=== PATIENT | male | born 1995 | race Caucasian/White ===

== ENCOUNTER 2016-08-11 03:02 | Emergency (ER) | payer OTHER ==
[2016-08-11] MEDS ORDERED: ONDANSETRON 4 MG/2 ML VIAL ONE (03:26)
[2016-08-11] MEDS ORDERED: ACETAMINOPHEN 500 MG TAB ONE (03:29)
[2016-08-11] MEDS ORDERED: NS 1,000 ML IV ONE (03:33)
[2016-08-11] MEDS ORDERED: ACETAMINOPHEN 500 MG TAB PO ONE (03:33)
[2016-08-11] MEDS ORDERED: ONDANSETRON 4 MG/2 ML VIAL IVP ONE (03:33)
--- NOTE | 2016-08-11 03:45 | EDPHY ---
H & P Time Seen by Provider: 08/11/16 03:22 HPI/ROS: HPI Flu symptoms. 21-year-old male by private vehicle. He reports onset of fever, nonproductive cough, sore throat, mild dull gradual onset headache, chills, muscle aches and joint aches starting mid afternoon yesterday. He reports he was seen at an urgent care for [place] at 8:00 p.m.. No chest x-ray performed. No influenza done. Patient sent home on supportive care. He returns to the emergency department this morning stating that his symptoms are worse. ROS: Constitutional: As above. No weakness. Eyes: No discharge. No changes in vision. ENT: As above. Respiratory: As above. No shortness of breath. Cardiac: No chest pain, no palpitations. Gastrointestinal: No abdominal pain, no vomiting, no diarrhea. Genitourinary: No hematuria. No dysuria or increased frequency with urination. Musculoskeletal: As above. Skin: No rashes. Neurological: No headache. No focal weakness or altered sensation. Past medical history: Social history: Physical Exam: General Appearance: Alert, no distress. This patient is responding to questions appropriately and in full sentences. This patient appears well- hydrated and well-nourished. Eyes: Pupils equal and round no pallor or injection. No lid edema, erythema or injection. ENT, Mouth: Mucous membranes are moist. The pharyngeal tissues are unremarkable. No edema or swelling. No asymmetry suggestive of abscess. No erythema or exudates. Respiratory: There are no retractions, lungs are clear to auscultation with good air movement bilaterally. No tachypnea. Cardiovascular: Regular rate and rhythm. No murmur. Gastrointestinal: Abdomen is soft and nontender, no masses, bowel sounds normal. No focal tenderness at McBurney's point. No Centeno sign. Neurological: Motor sensory function is grossly intact. Cranial nerves are normal. Gait is normal. Skin: Warm and dry, no rashes. Musculoskeletal: Neck is supple and nontender. No cervical lymphadenopathy Extremities are symmetrical. All joints range without pain or impingement. Psychiatric: No agitation. No depression. Database: EKG: Imaging: Chest x-ray PA and lateral; the cardiac mediastinal silhouette is unremarkable. No evidence of infiltrate or pneumothorax. Bronchitis. No other acute cardiopulmonary disease process noted. Interpreted by me. Procedures: Emergency department course: Patient sent for a chest x-ray. Results of chest x-ray discussed with him. Onset of symptoms less than 48 hours. No evidence of pneumonia on chest x-ray. His symptomatology is classic for influenza. Patient started on Tamiflu 75 mg orally in the emergency department. He was also given Tylenol for fever. He feels comfortable going home and I feel he is safe for discharge. I discussed high-dose ibuprofen. He will be prescribed Tamiflu on discharge. Follow-up and return to emergency department precautions discussed with him. All of his questions were answered. He was discharged in good condition. Differential Diagnosis: The differential diagnosis on this patient includes but is not limited to influenza, viral bronchitis. Pneumonia, serious bacterial infection unlikely. This represents a partial list of diagnoses considered. These considerations are based on history, physical exam, past history, reassessment and diagnostic testing. Smoking Status: Never smoked Constitutional: Initial Vital Signs Temperature (C) 38.5 C H 08/11/16 03:04 Heart Rate 98 08/11/16 03:04 Respiratory Rate 18 08/11/16 03:04 Blood Pressure 147/84 H 08/11/16 03:04 O2 Sat (%) 93 08/11/16 03:04 O2 Delivery Mode Room Air Allergies/Adverse Reactions: No Known Allergies Allergy (Verified 08/11/16 03:07) Home Medications: Medication Instructions Recorded Albuterol 08/11/16 Oseltamivir Phosphate [Tamiflu 75 75 mg PO BID #10 cap 08/11/16 mg (RX)] Medical Decision Making - Data Points Medications Given: Discontinued Medications Acetaminophen (Tylenol) 1,000 mg PO EDNOW ONE Stop: 08/11/16 03:34 Last Admin: 08/11/16 03:30 Dose: 1,000 mg Sodium Chloride (Ns) 1,000 mls @ 0 mls/hr IV ONCE ONE PRN Reason: Wide Open Stop: 08/11/16 03:34 Last Admin: 08/11/16 03:30 Dose: 1,000 mls Ondansetron HCl (Zofran) 4 mg IVP EDNOW ONE Stop: 08/11/16 03:34 Last Admin: 08/11/16 03:30 Dose: 4 mg Departure - Departure Disposition: Home, Routine, Self-Care Clinical Impression: Influenza Condition: Good Instructions: Influenza (ED) Additional Instructions: Read and follow provided instructions. Follow-up with your primary care physician tomorrow for re-evaluation. Take medication as prescribed. Ibuprofen dosin mg every 6 hours with meals for the next 3 days only. Return to the emergency department for worsening symptoms or other serious concerns. Prescriptions: Oseltamivir Phosphate [Tamiflu 75 mg (RX)] 75 mg PO BID #10 cap
[2016-08-11] MEDS ORDERED: OSELTAMIVIR PHOSPHATE 75 MG CAP PO ONE (04:05)
[2016-08-11] MEDS ORDERED: OSELTAMIVIR PHOSPHATE 75 MG CAP ONE (04:06)
[2016-08-11 04:19] VITALS: BP 124/70; PULSE 83; RESP 16; TEMP 99.1; O2SAT 92
== END 2016-08-11 04:18 | disposition home or self-care (01) ==
DX: J11.1 Influenza due to unidentified influenza virus with other respiratory manifestations (principal)
CPT/HCPCS: 96374; J2405

== ENCOUNTER 2016-08-12 12:30 | Emergency (ER) | payer OTHER ==
[2016-08-12] MEDS ORDERED: IPRATROPIUM/ALBUTEROL 3 ML DEYVIAL IH ONE (12:45)
--- NOTE | 2016-08-12 12:52 | EDPHY ---
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 He has been taking ibuprofen for pain relief and has started taking his Tamiflu. Denies back or flank pain. Denies nuchal rigidity. Denies gait instability. Denies slurred speech. Denies abdominal pain. Denies urinary complaints. Denies rash or international travel. PRIMARY CARE PROVIDER: [facility] REVIEW OF SYSTEMS: A ten point review of systems was performed and is negative with the exception of the items mentioned in the HPI PAST MEDICAL & SURGICAL HISTORY: No pertinent medical or surgical history SOCIAL HISTORY: Nonsmoker, student PHYSICAL EXAM (Prior to examination, patient consented to physical exam, hands were washed and my usual and customary physical exam procedures followed) 1) GENERAL: Well-developed, well-nourished, alert and oriented. Appears nontoxic 2) HEAD: Normocephalic, atraumatic 3) HEENT: Pupils equal, round, reactive to light bilaterally. Sclera anicteric. Nasopharynx, oropharynx, clear, no lesions. Posterior oropharynx is erythematous with no exudate, no trismus no drooling. Ears bilaterally with normal tympanic membranes. 4) NECK: Full range of motion, no meningeal signs. No adenopathy 5) LUNGS: Clear auscultation bilaterally, no wheezes, no rhonchi, no retractions. 6) HEART: Regular rate and rhythm, no murmur, no heave, no gallop. 7) ABDOMEN: No guarding, no rebound, no focal tenderness, negative McBurney's, negative Centeno's, negative Rovsing's, negative peritoneal sign, 8) MUSCULOSKELETAL: Moving all extremities, no focal areas of tenderness, no obvious trauma. No peripheral edema or discoloration. 9) BACK: No CVA tenderness. 10) SKIN: No rash, no petechiae. DIFFERENTIAL DIAGNOSIS: In no particular include but limited to pneumonia, pneumothorax, hemothorax - Personal History Current Tetanus/Diphtheria Vaccine: Yes Tetanus Vaccine Date: 2012 - Medical/Surgical History Hx Asthma: Yes Hx Chronic Respiratory Disease: No Hx Diabetes: No Hx Cardiac Disease: No Hx Renal Disease: No Hx Cirrhosis: No Hx Alcoholism: No Hx HIV/AIDS: No Hx Splenectomy or Spleen Trauma: No Other PMH: PSH: denies. PMH: SHINGLES; PNA x4; - Social History Smoking Status: Never smoked Constitutional: Initial Vital Signs Temperature (C) 39.5 C H 08/12/16 12:33 Heart Rate 96 08/12/16 12:33 Respiratory Rate 18 08/12/16 12:33 Blood Pressure 124/77 H 08/12/16 12:33 O2 Sat (%) 95 08/12/16 12:33 O2 Delivery Mode Room Air Allergies/Adverse Reactions: No Known Allergies Allergy (Verified 08/12/16 12:35) Home Medications: Medication Instructions Recorded Albuterol 08/11/16 Oseltamivir Phosphate [Tamiflu 75 75 mg PO BID #10 cap 08/11/16 mg (RX)] Albuterol [Proventil Inhaler HFA 1 - 2 puffs IH Q4PRN PRN #1 mdi 08/12/16 (*)] Benzonatate [Tessalon Pearles (RX)] 200 mg PO TID PRN #15 cap 08/12/16 Medical Decision Making - Diagnostics Imaging: Xray of the chest interpreted by myself: no pneumothorax, no infiltrate ED Course/Re-evaluation: Patient re-evaluated with serial examinations, most recently at 1:14 p.m after receiving DuoNeb treatment. States that he is feeling significant improvement. I re-evaluated the patient is lungs are clear bilaterally, maintaining normal saturations. He has also been given acetaminophen, ibuprofen.. Discussed case with Dr. Ángela Ann. Do not think that hospitalization is currently indicated. I do think he would benefit from single dose of oral Decadron the ER and discharged with antitussive and albuterol and continues Tamiflu. He is agreeable with this plan. - Data Points Medications Given: Discontinued Medications Acetaminophen (Tylenol) 1,000 mg PO EDNOW ONE Stop: 08/12/16 12:55 Last Admin: 08/12/16 13:01 Dose: 1,000 mg Albuterol/Ipratropium (Duoneb) 3 ml IH EDNOW ONE Stop: 08/12/16 12:46 Last Admin: 08/12/16 13:02 Dose: 3 ml Ibuprofen (Motrin) 800 mg PO EDNOW ONE Stop: 08/12/16 12:55 Last Admin: 08/12/16 13:01 Dose: 800 mg Departure - Departure Disposition: Home, Routine, Self-Care Clinical Impression: Influenza-like illness Condition: Good Instructions: Influenza (ED) Additional Instructions: Return to the emergency department immediately for change in breathing habits, change in voice, change in swallowing habits, change in mental status, or any other symptoms that concern you. Referrals: [facility],. [Clinic] - As per Instructions Stand Alone Forms: School Excuse Prescriptions: Albuterol [Proventil Inhaler HFA (*)] 1 - 2 puffs IH Q4PRN PRN #1 mdi PRN Reason: Cough, Moderate Benzonatate [Tessalon Pearles (RX)] 200 mg PO TID PRN #15 cap PRN Reason: Cough, Moderate
[2016-08-12] MEDS ORDERED: IBUPROFEN 200 MG TAB PO ONE (12:54)
[2016-08-12] MEDS ORDERED: ACETAMINOPHEN 500 MG TAB PO ONE (12:54)
[2016-08-12] MEDS ORDERED: DEXAMETHASONE VARIABLE DOSE IVP/PO ONE (13:21)
[2016-08-12] MEDS ORDERED: DEXAMETHASONE 4 MG TAB ONE (13:29)
[2016-08-12 13:40] VITALS: BP 133/75; PULSE 103; RESP 17; TEMP 100.2; O2SAT 93
== END 2016-08-12 13:39 | disposition home or self-care (01) ==
DX: J11.1 Influenza due to unidentified influenza virus with other respiratory manifestations (principal); J45.909 Unspecified asthma, uncomplicated